=== PATIENT | male | born 1975 | race American Indian/Alaskan Native ===

== ENCOUNTER 2017-06-28 12:52 | Emergency (ER) | payer SELFPAY ==
[2017-06-28 13:49] LABS: Basophils % (Auto) 0.6 % (0.0-1.8); Eosinophils % (Auto) 1.1 % (0.0-4.3); Hematocrit 42.2 % (35.5-45.6); Hemoglobin 13.5 gm/dl (11.8-15.2); Mean Corpuscular HGB Conc 32 % (32-34); Mean Corpuscular Volume 79 fl (84-94); Platelet Count 168 K/mm3 (140-440); Red Blood Count 5.32 M/mm3 (3.65-5.03); Red Cell Distribution Width 16.4 % (13.2-15.2); White Blood Count 4.4 K/mm3 (4.5-11.0)
[2017-06-28 13:55] LABS: Mean Corpuscular Hemoglobin 25 pg (28-32)
[2017-06-28 14:25] LABS: Anion Gap 17 mmol/L; Blood Urea Nitrogen 9 mg/dL (9-20); Calcium 8.8 mg/dL (8.4-10.2); Carbon Dioxide 27 mmol/L (22-30); Chloride 97.8 mmol/L (98-107); Glucose 101 mg/dL (75-100); Potassium 3.3 mmol/L (3.6-5.0); Sodium 138 mmol/L (137-145)
[2017-06-28 20:47] VITALS: BP 133/91
--- NOTE | 2017-07-15 00:30 | ED Elopement Review ---
ED Pt Elopement review - Results review Lab results: Laboratory Tests 06/28/17 06/28/17 06/28/17 13:26 13:26 15:28 WBC 4.4 L RBC 5.32 H Hgb 13.5 Hct 42.2 MCV 79 L MCH 25 L MCHC 32 RDW 16.4 H Plt Count 168 Lymph % (Auto) 48.9 H [place] % (Auto) 7.7 H Eos % (Auto) 1.1 Baso % (Auto) 0.6 Lymph # 2.1 [place] # 0.3 Eos # 0.0 Baso # 0.0 Seg Neutrophils % 41.7 Seg Neutrophils # 1.8 Sodium 138 Potassium 3.3 L Chloride 97.8 L Carbon Dioxide 27 Anion Gap 17 BUN 9 Creatinine 1.0 Estimated GFR > 60 BUN/Creatinine Ratio 9.00 Glucose 101 H Calcium 8.8 Troponin T < 0.010 < 0.010 06/28/17 20:43 WBC RBC Hgb Hct MCV MCH MCHC RDW Plt Count Lymph % (Auto) [place] % (Auto) Eos % (Auto) Baso % (Auto) Lymph # [place] # Eos # Baso # Seg Neutrophils % Seg Neutrophils # Sodium Potassium Chloride Carbon Dioxide Anion Gap BUN Creatinine Estimated GFR BUN/Creatinine Ratio Glucose Calcium Troponin T < 0.010 - Call Back decision Pt Call Back Decision: Pt to F/U with PMD
== END 2017-06-28 20:47 | disposition left against medical advice (07) ==
LOC: ED 12:52
DX: R07.9 Chest pain, unspecified (principal); Z53.21 Procedure and treatment not carried out due to patient leaving prior to being seen by health care provider
CPT/HCPCS: 36415; 80048; 84484; 85025; 93005; 93010